=== PATIENT | female | born 1955 | race African-American/Black ===

== ENCOUNTER → 2020-10-23 | Outpatient (CLI) | payer OTHER | LOC: HYPER 13:32 | PROVIDERS: ATTEND Emergency Medicine | DX: L89.154 Pressure ulcer of sacral region, stage 4 (principal); I69.051 Hemiplegia and hemiparesis following nontraumatic subarachnoid hemorrhage affecting right dominant side; R53.1 Weakness; E44.0 Moderate protein-calorie malnutrition; M62.40 Contracture of muscle, unspecified site; G47.9 Sleep disorder, unspecified; F32.9 Major depressive disorder, single episode, unspecified; Z91.81 History of falling; Z68.1 Body mass index [BMI] 19.9 or less, adult; Z87.891 Personal history of nicotine dependence; Z86.718 Personal history of other venous thrombosis and embolism; Z87.01 Personal history of pneumonia (recurrent); Z95.5 Presence of coronary angioplasty implant and graft; Z79.01 Long term (current) use of anticoagulants; Z79.899 Other long term (current) drug therapy ==

== ENCOUNTER → 2020-12-05 | Outpatient (CLI) | payer OTHER | LOC: HYPER 08:15 | PROVIDERS: ATTEND Emergency Medicine | DX: L89.154 Pressure ulcer of sacral region, stage 4 (principal); I69.051 Hemiplegia and hemiparesis following nontraumatic subarachnoid hemorrhage affecting right dominant side; R53.1 Weakness; E44.0 Moderate protein-calorie malnutrition; M62.40 Contracture of muscle, unspecified site; G47.9 Sleep disorder, unspecified; F32.9 Major depressive disorder, single episode, unspecified; Z68.1 Body mass index [BMI] 19.9 or less, adult; Z87.891 Personal history of nicotine dependence; Z86.718 Personal history of other venous thrombosis and embolism; Z87.01 Personal history of pneumonia (recurrent); Z95.5 Presence of coronary angioplasty implant and graft; Z79.01 Long term (current) use of anticoagulants ==